=== PATIENT | male | born 1975 | race Caucasian/White ===

== ENCOUNTER → 2021-01-31 08:29 | Outpatient (BNVA) | payer OTHER, SELFPAY | PROVIDERS: Visit Provider Internal Medicine Endocrinology, Diabetes & Metabolism | DX: R79.89 Other specified abnormal findings of blood chemistry (principal) | CPT/HCPCS: 99202 ==

== ENCOUNTER 2021-10-23 11:35 | Outpatient (REF) | payer OTHER, SELFPAY ==
[2021-10-23 13:01] LABS: Hematocrit 37.8 % (42.0-52.0); Hemoglobin 12.7 g/dl (14.0-18.0)
[2021-10-23 13:29] LABS: Cholesterol 183 mg/dL; HDL Cholesterol 32 mg/dL
[2021-10-23 13:33] LABS: LDL Cholesterol Calculated 121 mg/dl; Triglycerides 151 mg/dL
[2021-10-23 13:53] LABS: Thyroid Stimulating Hormone 1.12 uIU/mL (0.32-4.0)
[2021-10-25 08:36] LABS: Follicle Stimulating Hormone 2.7 mIU/mL (1.6-8.0); Lutenizing Hormone 5.7 mIU/mL (1.5-9.3); Prolactin 8.7 ng/mL (2.0-18.0); Sex Hormone Binding Globulin 53 nmol/L (10-50)
[2021-10-29 20:51] LABS: Testosterone-Bioavailable 34.4 ng/dL (110.0-575.0); Testosterone-Free 18.7 pg/mL (46.0-224.0); Testosterone-SHBG 50 nmol/L (10-50); Testosterone-Total 210 ng/dL (250-1100)
[2021-10-30 10:36] LABS: Testosterone, Free 24.5 pg/mL (35.0-155.0); Testosterone, Total 219 ng/dL (250-1100)
== END 2021-10-23 11:36 | disposition home or self-care (01) ==
LOC: HO.LAB 11:35
PROVIDERS: Visit Provider Internal Medicine Endocrinology, Diabetes & Metabolism
DX: Z12.5 Encounter for screening for malignant neoplasm of prostate (principal); R79.89 Other specified abnormal findings of blood chemistry
CPT/HCPCS: 36415; 80061; 83001; 83002; 84146; 84153; 84270; 84402; 84403; 84439; 84443; 85014; 85018; 99212

== ENCOUNTER 2022-03-20 11:57 | Outpatient (REF) | payer OTHER, SELFPAY ==
[2022-03-20 13:12] LABS: Ferritin 111 ng/mL (20-250)
== END 2022-03-20 11:58 | disposition home or self-care (01) ==
LOC: HO.LAB 11:57
PROVIDERS: Visit Provider Internal Medicine Endocrinology, Diabetes & Metabolism
DX: R79.89 Other specified abnormal findings of blood chemistry (principal)
CPT/HCPCS: 36415; 82728

== ENCOUNTER 2022-03-30 13:43 | Outpatient (REF) | payer OTHER, SELFPAY | END 2022-03-30 13:44 | disposition home or self-care (01) | LOC: HO.MRI 13:43 | PROVIDERS: Visit Provider Internal Medicine Endocrinology, Diabetes & Metabolism | DX: Z13.89 Encounter for screening for other disorder (principal) ==

== ENCOUNTER 2022-04-24 09:01 | Outpatient (REF) | payer OTHER, SELFPAY ==
[2022-04-30 12:47] LABS: Testosterone, Free 36.5 pg/mL (35.0-155.0); Testosterone, Total 304 ng/dL (250-1100)
== END 2022-04-24 09:02 | disposition home or self-care (01) ==
LOC: HO.LAB 09:01
PROVIDERS: PCP Surgery; Visit Provider Internal Medicine Endocrinology, Diabetes & Metabolism
DX: R79.89 Other specified abnormal findings of blood chemistry (principal)
CPT/HCPCS: 36415; 84402; 84403; 99212

== ENCOUNTER 2022-10-09 08:24 | Outpatient (REF) | payer OTHER, SELFPAY ==
[2022-10-09 11:25] LABS: Cortisol Random 16.4 ug/dL
== END 2022-10-09 08:25 | disposition home or self-care (01) ==
LOC: HO.LAB 08:24
PROVIDERS: PCP Surgery; Visit Provider Internal Medicine Endocrinology, Diabetes & Metabolism
DX: R79.89 Other specified abnormal findings of blood chemistry (principal)
CPT/HCPCS: 36415; 82533

== ENCOUNTER 2023-03-18 15:17 | Outpatient (REF) | payer OTHER, SELFPAY | END 2023-03-18 15:18 | disposition home or self-care (01) | LOC: HO.CT 15:17 | PROVIDERS: Visit Provider Internal Medicine Endocrinology, Diabetes & Metabolism | DX: R79.89 Other specified abnormal findings of blood chemistry (principal) | CPT/HCPCS: 70460; Q9967 ==